=== PATIENT | female | born 1955 | race Caucasian/White ===

== ENCOUNTER 2018-06-22 08:52 | Outpatient (CLI) | payer OTHER ==
--- NOTE | 2018-06-25 09:20 | DEXA Report ---
Reason: POST MENOPAUSAL Procedure Date: 06/22/2018 Accession Number: [id number] / [id number] Procedure: DEX - Dexa Spine and/or Hip CPT Code: FULL RESULT: EXAM: Dexa Spine and/or Hip DATE: 06/22/2018 9:21 AM CLINICAL HISTORY: POST MENOPAUSAL TECHNIQUE: Dual energy x-ray absorptiometry (DXA) was performed on a [employer] System. Regions measured are the AP Spine, femoral neck, and if needed forearm. COMPARISON: None. In accordance with the International Society for Clinical Densitometry (ISCD) guidelines, data from previous exams may be reanalyzed using current recommendations and techniques. This is done to allow a more accurate basis for comparison with the current study. FINDINGS: The data for the lumbar spine is as follows: BMD (g/cm/cm) T-SCORE Z-SCORE REGION L1 1.401 2.3 3.7 L2 1.539 2.8 4.3 L3 1.478 2.3 3.8 L4 1.329 1.1 2.5 TOTAL 1.428 2.1 3.5 NOTE: All evaluable vertebrae are used for classification The data for the hip is as follows: BMD (g/cm/cm) T-SCORE Z-SCORE REGION Neck 0.946 -0.7 0.7 TOTAL 0.850 -1.3 -0.1 NOTE: The femoral neck or total proximal femur, whichever is lowest, is used for classification. * Denotes significant change at the 95% confidence level. Denotes dissimilar scan types or analysis methods. IMPRESSION: THE WHO CLASSIFICATION BASED ON THE INTERNATIONAL REFERENCE STANDARD IS OSTEOPENIA. THE FRACTURE RISK IS INCREASED. RECOMMENDATION: Patients with diagnosis of osteoporosis or osteopenia should have regular bone mineral density assessment. For those eligible for Medicare, routine testing is allowed once every 2 years. Testing frequency can be increased for patients who have rapidly progressing disease or for those who are receiving medical therapy to restore bone mass. COMMENT: World Health Organization (WHO) definitions for osteoporosis and osteopenia: NORMAL BMD: T-score at -1.0 or higher, fracture risk is low OSTEOPENIA BMD: T-score between -1.0 and -2.5, fracture risk is increased. OSTEOPOROSIS BMD: T-score at -2.5 or lower, fracture risk is high. National Osteoporosis Foundation recommends: 1. Obtain adequate dietary calcium (at least 1200 mg per day) and vitamin D (400-800 international units per day). 2. Participate, as appropriate, in regular weightbearing and muscle-strengthening exercise. 3. Avoid tobacco use and reduce alcohol and caffeine intake. 4. For more detailed information see the website at www.NOF.org.
== END 2018-06-22 08:53 | disposition home or self-care (01) ==
LOC: DI 08:52
PROVIDERS: ATTEND Registered Nurse
DX: Z13.820 Encounter for screening for osteoporosis (principal); M85.88 Other specified disorders of bone density and structure, other site; Z78.0 Asymptomatic menopausal state
CPT/HCPCS: 77080

== ENCOUNTER 2018-06-22 09:35 | Outpatient (CLI) | payer OTHER ==
--- NOTE | 2018-06-25 08:35 | Mammography Report ---
Reason: SCREENING MAMMO Procedure Date: 06/22/2018 Accession Number: [id number] / [id number] Procedure: KASSANDRA - Screening Mammo Dig Bilat CPT Code: FULL RESULT: EXAM: Screening Mammo Dig Bilat DATE: 06/22/2018 9:42 AM CLINICAL HISTORY: 63-year-old female presents for screening. TECHNIQUE: Bilateral CC and MLO views were obtained. COMPARISON: 06/20/2016, 08/20/2014, 02/07/2013, 01/24/2013. FINDINGS: The breasts demonstrate scattered fibroglandular densities bilaterally. No suspicious masses, clustered microcalcifications, or regions of architectural distortion are identified. IMPRESSION: Negative examination RECOMMENDATION: Routine annual screening unless otherwise clinically indicated. BIRADS CATEGORY 1: Negative STANDARD QUALIFYING STATEMENTS: 1. This examination was not reviewed with the aid of Computer-Aided Detection (CAD). 2. A negative or benign imaging report should not delay biopsy if clinically suspicious findings are present. Consider surgical consultation if warranted. More than 5% of cancers are not identified by imaging. 3. Dense breasts may obscure an underlying neoplasm. 4. This examination was reviewed without the aid of 3D breast imaging (tomosynthesis).
== END 2018-06-22 09:36 | disposition home or self-care (01) ==
LOC: DI 09:35
PROVIDERS: ATTEND Registered Nurse
DX: Z12.31 Encounter for screening mammogram for malignant neoplasm of breast (principal)
CPT/HCPCS: 77067

== ENCOUNTER 2018-09-24 17:58 | Outpatient (CLI) | payer OTHER ==
--- NOTE | 2018-09-25 12:18 | XRAY Report ---
Reason: UNILATERAL PRIMARY OSTEOARTHRITIS,LEFT HIP Procedure Date: 09/24/2018 Accession Number: [id number] / [id number] Procedure: XR - Hips 2V BILAT CPT Code: FULL RESULT: EXAM: BILATERAL HIP RADIOGRAPHY EXAM DATE: 09/24/2018 06:02 PM. CLINICAL HISTORY: Unilateral primary osteoarthritis,left hip. COMPARISON: None. TECHNIQUE: 2 views each. FINDINGS: Bones: Normal. No fractures or bone lesion. Right Hip: Moderate joint space loss. Left Hip: End-stage degenerative changes including farn-ea-quag contact, sclerosis and subchondral cyst formation. Soft Tissues: Normal. No soft tissue swelling. IMPRESSION: End-stage degenerative changes of the left hip. RADIA
== END 2018-09-24 17:59 | disposition home or self-care (01) ==
LOC: DI 17:58
PROVIDERS: ATTEND Registered Nurse
DX: M16.0 Bilateral primary osteoarthritis of hip (principal)
CPT/HCPCS: 73521

== ENCOUNTER 2019-04-20 03:23 | Outpatient (CLI) | payer OTHER | END 2019-04-20 03:24 | disposition critical access hospital (66) | LOC: EMS 03:23 | PROVIDERS: ATTEND Surgery | DX: R07.9 Chest pain, unspecified (principal); R11.0 Nausea | CPT/HCPCS: A0425; A0427 ==

== ENCOUNTER 2019-04-20 04:20 | Emergency (ER) | payer OTHER ==
--- NOTE | 2019-04-20 04:32 | ED Physician Documentation ---
PD HPI CHEST PAIN - Stated complaint Stated Complaint: CP - Chief complaint Chief Complaint: Cardiac - History obtained from History obtained from: Patient, Family - History of Present Illness Timing - onset: How many hours ago (4.5) Timing - onset during: Sleep Timing - duration: Hours (4.5) Timing - details: Gradual onset Pain level max: 5 Pain level now: 0 Quality: Pressure, Tightness Location: Other (upper chest and throat) Radiation: Other (states felt in L shoulder as well.) Improved by: Nitro (with EMS), ASA Worsened by: No: Exertion, Inspiration, Eating, Movement, Palpation, Position Associated symptoms: Nausea. No: Shortness of air, Diaphoresis, Vomiting, Feeling faint / dizzy, General Weakness, Palpitations, Cough Similar symptoms before: Has not had sx before Recently seen: Not recently seen - Additional information Additional information: Patient states she drank margaritas last night and ate more than usual. She states she normally does not drink alcohol. No history of acute coronary syndrome. Review of Systems Ten Systems: 10 systems reviewed and negative Constitutional: denies: Fever, Chills Nose: denies: Rhinorrhea / runny nose, Congestion Throat: denies: Sore throat Cardiac: denies: Palpitations, Calf pain Respiratory: denies: Cough GI: denies: Nausea, Vomiting, Diarrhea Skin: denies: Rash Musculoskeletal: denies: Neck pain, Back pain Neurologic: denies: Focal weakness, Numbness, Headache PD PAST MEDICAL HISTORY - Past Medical History Past Medical History: Yes Endocrine/Autoimmune: HyPOthyroidism - Present Medications Home Medications: Ambulatory Orders Medication Instructions Recorded Confirmed Levothyroxine Sodium 50 mcg PO DAILY 04/20/19 04/20/19 Liothyronine Sodium 15 mg PO DAILY 04/20/19 04/20/19 - Allergies Allergies/Adverse Reactions: Allergies Allergy/AdvReac Type Severity Reaction Status Date / Time No Known Drug Allergies Allergy Verified 04/20/19 04:33 - Living Situation Living Situation: reports: With family Living Arrangement: reports: At home - Social History Does the pt smoke?: No Does the pt drink ETOH?: Yes Does the pt have substance abuse?: No - Family History Family history: reports: Non contributory PD ED PE NORMAL - Vitals Vital signs reviewed: Yes - General General: Alert and oriented X 3, No acute distress, Well developed/nourished - HEENT HEENT: Moist mucous membranes - Neck Neck: Supple, no meningeal sign, No JVD, No bruit - Cardiac Cardiac: RRR, No murmur, Strong equal pulses - Respiratory Respiratory: No respiratory distress, Clear bilaterally - Abdomen Abdomen: Soft, Non tender, Non distended - Derm Derm: Warm and dry - Extremities Extremities: No edema, No calf tenderness / cord - Neuro Neuro: Alert and oriented X 3 - Psych Psych: Normal mood, Normal affect Results - Vitals Vitals: Vital Signs - 24 hr 04/20/19 04/20/19 04/20/19 04:22 04:56 05:28 Temperature 36.8 C Heart Rate 99 91 86 Respiratory 16 13 18 Rate Blood Pressure 117/81 H 115/75 100/65 Blood Pressure 118/75 [Left] Blood Pressure 117/81 H [Right] O2 Saturation 97 100 100 04/20/19 04/20/19 06:09 07:21 Temperature Heart Rate 78 91 Respiratory 20 20 Rate Blood Pressure 108/70 100/53 L Blood Pressure [Left] Blood Pressure [Right] O2 Saturation 99 100 Oxygen O2 Source Room air - EKG (time done) 0423 Rate: Rate (enter#) (88) Rhythm: NSR Kermit: Normal Intervals: Normal [place] QRS: Normal Ischemia: Normal ST segments, Q waves (V1-2) - Labs Labs: Laboratory Tests 04/20/19 04/20/19 04/20/19 04:52 04:52 04:52 WBC 4.3 L RBC 3.83 L Hgb 11.5 L Hct 36.1 L MCV 94.3 MCH 30.0 MCHC 31.9 L RDW 12.7 Plt Count 215 MPV 9.8 Neut # (Auto) 2.8 Lymph # (Auto) 1.0 L [place] # (Auto) 0.3 Eos # (Auto) 0.2 Baso # (Auto) 0.0 Absolute Nucleated RBC 0.00 Nucleated RBC % 0.0 Sodium 146 H Potassium 3.3 L Chloride 115 H Carbon Dioxide 27 Anion Gap 4.0 L BUN 20 Creatinine 0.5 Estimated GFR (MDRD) 123 Glucose 98 Calcium 7.5 L Total Bilirubin 0.3 AST 16 ALT 17 Alkaline Phosphatase 49 Troponin I High Sens 30.9 H* Total Protein 5.6 L Albumin 3.1 L Globulin 2.5 Albumin/Globulin Ratio 1.2 Lipase 37 09/21/19 06:30 WBC RBC Hgb Hct MCV MCH MCHC RDW Plt Count MPV Neut # (Auto) Lymph # (Auto) [place] # (Auto) Eos # (Auto) Baso # (Auto) Absolute Nucleated RBC Nucleated RBC % Sodium Potassium Chloride Carbon Dioxide Anion Gap BUN Creatinine Estimated GFR (MDRD) Glucose Calcium Total Bilirubin AST ALT Alkaline Phosphatase Troponin I High Sens 111.1 H* Total Protein Albumin Globulin Albumin/Globulin Ratio Lipase - Rads (name of study) cxr Radiology: Prelim report reviewed, EMP read contemporaneously, See rad report (No acute cardiopulmonary findings radiographically. ) PD MEDICAL DECISION MAKING - ED course Complexity details: reviewed results, re-evaluated patient, considered differential, d/w patient, d/w family, d/w senior information security consultant ED course: 64-year-old female presents the emergency department with chest pain. She was given aspirin and nitroglycerin with EMS. Chest pain-free in the emergency department. Initial high-sensitivity troponin was 30. Repeat 2 hours later was up to 110. Concern for ischemic event. Started on a heparin drip. Contacted [facility] for transfer, Dr. Stone. Patient signed out to Dr. Parra awaiting transfer. This document was made in part using voice recognition software. While efforts are made to proofread this document, sound alike and grammatical errors may occur. Departure - Departure Disposition: 02 Transfer Acute Care Hosp Clinical Impression: NSTEMI (non-ST elevated myocardial infarction) Condition: Stable
--- NOTE | 2019-04-20 04:54 | XRAY Report ---
Reason: Chest Pain Procedure Date: 04/20/2019 Accession Number: [id number] / [id number] Procedure: XR - Chest 1 View X-Ray CPT Code: 52084 FULL RESULT: EXAM: CHEST RADIOGRAPHY EXAM DATE: 04/20/2019 04:38 AM. CLINICAL HISTORY: Chest Pain. COMPARISON: None. TECHNIQUE: 1 view. FINDINGS: Lungs/Pleura: No infiltrates. No pleural effusions or pneumothorax. Mediastinum: Heart size within normal limits. No pulmonary vascular congestion. Osseous structures: No significant focal osseous lesions. IMPRESSION: No acute cardiopulmonary findings radiographically. RADIA
[2019-04-20 05:00] LABS: BASOPHILS % (AUTO) 0.7 %; EOSINOPHILS # (AUTO) 0.2 10^3/uL (0.0-0.7); EOSINOPHILS % (AUTO) 3.7 %; HGB - HEMOGLOBIN 11.5 g/dL (12.0-16.0); LYMPHOCYTES % (AUTO) 23.8 %; MEAN CORPUSCULAR HGB CONC 31.9 g/dL (32.0-36.0); MEAN CORPUSCULAR VOLUME 94.3 fL (81.0-99.0); MEAN PLATELET VOLUME 9.8 fL (7.9-10.8); MONOCYTES # (AUTO) 0.3 10^3/uL (0.0-1.0); MONOCYTES % (AUTO) 6.7 %; NEUTROPHILS # (AUTO) 2.8 10^3/uL (1.5-6.6); NEUTROPHILS % (AUTO) 64.9 %; PLT - PLATELET COUNT 215 10^3/uL (130-450); RED BLOOD COUNT 3.83 10^6/uL (4.20-5.40); RED CELL DISTRIBUTION WIDTH 12.7 % (12.0-15.0); WHITE BLOOD COUNT 4.3 x10^3/uL (4.8-10.8)
[2019-04-20 05:14] LABS: ALBUMIN 3.1 g/dL (3.2-5.5); ALBUMIN/GLOBULIN RATIO 1.2 (1.0-2.2); BILIRUBIN,TOTAL 0.3 mg/dL (0.2-1.0); CALCIUM 7.5 mg/dL (8.5-10.3); CREATININE 0.5 mg/dL (0.4-1.0); TOTAL PROTEIN 5.6 g/dL (6.7-8.2)
[2019-04-20] MEDS ORDERED: HEPARIN 25000UNITS/500ML (D5W) 25,000 UNIT/500 ML BAG IV STA (07:06)
[2019-04-20 09:59] VITALS: BP 126/74
== END 2019-04-20 10:20 | disposition short-term general hospital (02) ==
LOC: EDUNIT# → ED 04:20
DX: I21.4 Non-ST elevation (NSTEMI) myocardial infarction (principal)
CPT/HCPCS: 36415; 71045; 80053; 83690; 84484; 85025; 93005; 96374; 99285

== ENCOUNTER 2019-12-04 19:21 | Outpatient (CLI) | payer OTHER | END 2019-12-04 19:22 | disposition home or self-care (01) | LOC: COV 19:21 | PROVIDERS: ATTEND Family Medicine | DX: R50.9 Fever, unspecified (principal); M79.10 Myalgia, unspecified site | CPT/HCPCS: 81599 ==

== ENCOUNTER 2022-07-13 09:50 | Outpatient (CLI) | payer OTHER ==
--- NOTE | 2022-07-14 11:00 | Mammography Report ---
BILATERAL DIGITAL SCREENING MAMMOGRAM 3D/2D: 07/13/2022 CLINICAL: Routine screening. Comparison is made to exams dated: 06/20/2016 mammogram, 06/22/2018 mammogram, and 08/20/2014 mammogr am - [facility]. There are scattered areas of fibroglandular density in both breasts (category b / 25%-50% glandular t issue). No significant masses, calcifications, or other findings are seen in either breast. There has been no significant interval change. IMPRESSION: NEGATIVE There is no mammographic evidence of malignancy. A 1 year screening mammogram is recommended. Based on the Tyrer Cuzick model (a risk assessment model) the patients lifetime risk is 5.3% and her 10 year risk is 3.1%. According to the ACR, ACS, and NCCN guidelines, an annual breast MRI exam noemí g with mammogram is recommended if the patients lifetime risk is 20% or greater. This exam was interpreted at Station ID: [id number]. NOTE: For mammograms, a report in lay terms will be sent to the patient. Approximately 15% of breast malignancies will not be visualized mammographically. In the management of a palpable breast mass, a negative mammogram must not discourage biopsy of a clinically suspicious lesion. Electronically Signed By: Frank neely/brian:07/13/2022 11:45:46 ACR BI-RADS Category 1: Negative 3341F PARENCHYMAL PATTERN: (A) - The breast(s) demonstrate(s) scattered fibroglandular densities. BI-RADS CATEGORY: (1) - 1 RECOMMENDATION: (ANNUAL) - Recommend routine annual screening mammography. [id number] 1 year screening LATERALITY: (B)
== END 2022-07-13 09:51 | disposition home or self-care (01) ==
LOC: DI 09:50
PROVIDERS: ATTEND Registered Nurse
DX: Z12.31 Encounter for screening mammogram for malignant neoplasm of breast (principal)

== ENCOUNTER 2022-07-13 09:50 | Outpatient (CLI) | payer OTHER ==
[2022-07-13 10:28] LABS: CREATININE 0.8 mg/dL (0.4-1.0)
== END 2022-07-13 09:51 | disposition home or self-care (01) ==
LOC: LAB 09:50
PROVIDERS: ATTEND Registered Nurse
DX: R31.0 Gross hematuria (principal)
CPT/HCPCS: 36415; 82565

== ENCOUNTER 2022-07-13 09:51 | Outpatient (CLI) | payer OTHER ==
[2022-07-13] MEDS ORDERED: iohexoL-300 100 ML VIAL ONE ×2 (10:53)
[2022-07-13] MEDS ORDERED: iohexoL-300 100 ML VIAL IVP ONE (18:45)
--- NOTE | 2022-07-13 19:55 | CT Report ---
PROCEDURE: IVP INDICATIONS: HEMATURIA CONTRAST: 140ml Omnipaque 300 TECHNIQUE: After the administration of intravenous contrast, 5 mm thick sections acquired from the diaphragms to the symphysis. 5 mm thick coronal and sagittal reformats were acquired. For radiation dose reducti on, the following was used: automated exposure control, adjustment of mA and/or kV according to teto ent size. COMPARISON: None. FINDINGS: Image quality: Excellent. Lung bases: Lung bases are clear. Heart size is normal. Small hiatal hernia. Urinary system: Both kidneys are normal in size and enhancement. Contrast-filled renal calyces are normal in morphology. Contrast filled portions of both ureters are normal in caliber. Bladder wall thickness is normal. No renal stones are visualized. Solid organs: Liver and spleen are normal in size and enhancement. Gallbladder is unremarkable. Bi liary system is non dilated. Pancreas enhances normally. No adrenal nodules. Peritoneum and bowel: Bowel loops demonstrate normal wall thickness and caliber. Scattered colonic diverticula without acute inflammatory changes. No free fluid or air. Nodes and vessels: No retroperitoneal or mesenteric adenopathy by size criteria. Aorta and inferior vena cava are normal in size. Atherosclerotic calcifications Abdominal wall: No ventral hernias. Pelvis: No pathologic free pelvic fluid. No inguinal hernias or adenopathy. Bones: No suspicious bony lesions. No acute vertebral body compression fractures.Moderate multileve l spondylosis most severe at L1 and L2. IMPRESSION: CT IVP without acute abnormalities or findings to explain patient's history of hematuria. Colonic diverticulosis without acute diverticulitis. Atherosclerosis. Reviewed by: Hoang Rapp MD on 07/13/2022 7:53 PM PST Approved by: Hoang Rapp MD on 07/13/2022 7:53 PM PST Station ID: [id number]
== END 2022-07-13 09:52 | disposition home or self-care (01) ==
LOC: DI 09:51
PROVIDERS: ATTEND Registered Nurse
DX: R31.0 Gross hematuria (principal); K57.30 Diverticulosis of large intestine without perforation or abscess without bleeding; I70.90 Unspecified atherosclerosis
CPT/HCPCS: 74178; Q9967; 36415; 82565

== ENCOUNTER 2023-03-31 14:56 | Outpatient (CLI) | payer OTHER ==
--- NOTE | 2023-03-31 18:21 | XRAY Report ---
PROCEDURE: Cervical Spine Complete, x-ray INDICATIONS: NECK PAIN TECHNIQUE: 3 views of the cervical spine were acquired. COMPARISON: None. FINDINGS: Bones: Vertebral body height and alignment is maintained. Normal bone mineralization and cranioverte bral relationships. No fracture or traumatic malalignment. Disc space narrowing and hypertrophic face t joints noted in the mid cervical spine. There is reversal of normal cervical lordosis Soft tissues: Prevertebral soft tissues are normal in thickness. 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
== END 2023-03-31 14:57 | disposition home or self-care (01) ==
LOC: DI 14:56
PROVIDERS: ATTEND Registered Nurse
DX: R53.1 Weakness (principal); M47.22 Other spondylosis with radiculopathy, cervical region; M50.120 Mid-cervical disc disorder, unspecified level